=== PATIENT | female | born 1995 | race Two or more races ===

== ENCOUNTER 2021-03-01 11:03 | Emergency (ER) | payer OTHER ==
[~2021-03-01] VITALS: Ht 157.5 cm; Wt 62.1 kg
[2021-03-01] MEDS ORDERED: ONDANSETRON 2MG/ML, 2ML ONE (12:00)
[2021-03-01] MEDS ORDERED: ONDANSETRON 2MG/ML, 2ML IVPush ONE (12:00)
[2021-03-01] MEDS ORDERED: MORPHINE SULFATE 4 MG/ML, 1ML IVPush PRN (12:00)
[2021-03-01] MEDS ORDERED: MORPHINE SULFATE 4 MG/ML, 1ML ONE (12:00)
[2021-03-01] MEDS ORDERED: SODIUM CHLORIDE 0.9% 1,000ML IVBOLUS ONE (12:00)
[2021-03-01 12:19] LABS: BASOPHILS % (AUTO) 1 % (0-1); EOSINOPHILS % (AUTO) 4 % (1-7); LYMPHOCYTES % (AUTO) 32 % (22-44); MEAN CORPUSCULAR HEMOGLOBIN 29.6 pg (27.0-34.8); MEAN CORPUSCULAR HGB CONC 35.3 g/dL (32.4-35.8); MEAN PLATELET VOLUME 7.1 fL (7.4-10.4); MONOCYTES % (AUTO) 5 % (2-9); NEUTROPHILS % (AUTO) 59 % (42-75); PLATELET COUNT 360 x10^3/uL (130-400); RED BLOOD COUNT 2.87 x10^6/uL (3.82-5.3); RED CELL DISTRIBUTION WIDTH 12.5 % (9.6-15.2)
--- NOTE | 2021-03-01 12:19 | NUR ---
pt sent for r/o perf bowel after liposuction on 02/25/21. pt has 2 abd, 2 breast and 2 flank lap sites, all cdi. brusing noted to lower abd. tender to palp. ambualtory to restroom for sample. piv estb. labs drawn & sent. meds per mar. friend at bs. call light inreach. aware of plan for xray & ct. will ctm.
[2021-03-01 12:25] LABS: MICROSCOPIC AUTO
[2021-03-01 12:29] LABS: ANION GAP 5 mmol/L (5-15); CALCIUM 8.6 mg/dL (8.5-10.1); CHLORIDE 108 mmol/L (98-107); CREATININE 0.39 mg/dL (0.55-1.02)
[2021-03-01 12:30] LABS: ALANINE AMINOTRANSFERASE 35 U/L (12-78); ALBUMIN 2.6 g/dL (3.4-5.0)
[2021-03-01 12:31] LABS: ALKALINE PHOSPHATASE 61 U/L (45-117); BILIRUBIN,TOTAL 0.4 mg/dL (0.2-1.0); TOTAL PROTEIN 6.5 g/dL (6.4-8.2)
[2021-03-01] MEDS ORDERED: OMNIPAQUE 350 MG/ML, 100ML BOTTLE ONE (12:57)
--- NOTE | 2021-03-01 12:59 | NUR ---
back from ct. vss. denies need for additional pain meds.
--- NOTE | 2021-03-01 13:39 | NUR ---
FRIEND AND PT AWARE OF NPO STATUS. ADDITIONAL LABS DRAWN & PHLEB AT BS.
[2021-03-01 14:23] VITALS: BP 120/85
[2021-03-01] MEDS ORDERED: HYDROcodone/APAP 5/325 TABLET PO ONE (14:30)
== END 2021-03-01 14:25 | disposition home or self-care (01) ==
LOC: ED 13:55
DX: S30.1XXA Contusion of abdominal wall, initial encounter (principal); D64.9 Anemia, unspecified; R10.84 Generalized abdominal pain; R06.02 Shortness of breath; X58.XXXA Exposure to other specified factors, initial encounter; Y93.89 Activity, other specified; Y92.89 Other specified places as the place of occurrence of the external cause; Y99.8 Other external cause status
CPT/HCPCS: 36415; 71045; 71275; 74177; 80053; 81001; 85025; 86850; 86900; 93005; 96361; 96374; 96375; 99285; J2270; J2405; J7030; Q9967